=== PATIENT | male | born 1935 | race Caucasian/White ===

== ENCOUNTER 2019-10-25 13:31 | Outpatient (CLI) | payer MEDICARE, OTHER, SELFPAY ==
[2019-10-25 14:05] LABS: INR 1.37 (0.8-1.2)
== END 2019-10-25 13:32 | disposition home or self-care (01) ==
LOC: LAB 13:31
PROVIDERS: Family Provider Nurse Practitioner; PCP Nurse Practitioner; Visit Provider Thoracic Surgery (Cardiothoracic Vascular Surgery)
DX: I48.91 Unspecified atrial fibrillation (principal); I48.92 Unspecified atrial flutter
CPT/HCPCS: 85610

== ENCOUNTER → 2020-06-08 08:38 | Outpatient (BNVA) | payer MEDICARE, OTHER, SELFPAY | PROVIDERS: Family Provider Nurse Practitioner; PCP Nurse Practitioner; Referring Provider Dermatology; Visit Provider Dermatology | DX: B35.2 Tinea manuum (principal); L30.0 Nummular dermatitis; L85.3 Xerosis cutis | CPT/HCPCS: 87220 ==

== ENCOUNTER 2021-01-10 15:17 | Outpatient (CLI) | payer MEDICARE, OTHER, SELFPAY ==
--- NOTE | 2021-01-10 15:42 | XR_ITS ---
NOTE: Report was unsigned for reason: Ordering provider was edited. Original Signature date and time was: 01/10/2021 1552 WS: [id number] Exam: XR chest 2V* [id number] Date/Time of Exam: 01/10/2021 3:44 PM Reason For Exam: RESPIRATORY ILLNESS Comparison 07/13/2019. The lungs are hyperinflated and clear. Soft tissue nodules superimposes the lower lung zones and probably represent nipple shadows. Normal heart size. Signs of previous median sternotomy and cardiac valve replacement. No pleural effusions. The mediastinum is not widened. Regional bony elements are intact. [facility] X[facility]XR chest 2V* [id number] IMPRESSION: 1. Pulmonary hyperinflation which may indicate COPD. No acute cardiopulmonary f inding.
== END 2021-01-10 15:18 | disposition home or self-care (01) ==
PROVIDERS: Visit Provider Clinical Nurse Specialist Adult Health
DX: J98.9 Respiratory disorder, unspecified (principal)
CPT/HCPCS: 71046

== ENCOUNTER 2021-10-17 14:37 | Emergency (ER) | payer MEDICARE, OTHER, SELFPAY ==
[2021-10-17 15:14] VITALS: BP 180/82; PULSE 76; RESP 18; TEMP 36.7; O2SAT 97; BMI 28.7
[2021-10-17 15:42] VITALS: BP 167/72; PULSE 77; RESP 16; O2SAT 97
--- NOTE | 2021-10-17 15:52 | ED_ITS ---
HPI - General Adult General: Chief complaint: General Medical Stated complaint: Continuous bleeding Time Seen by Provider: 10/17/21 15:43 Source: patient and family () Mode of arrival: ambulatory Limitations: no limitations History of Present Illness: Patient with persistent bleeding from AV fistula left upper arm after dialysis today. Patient states he started bleeding and after he left dialysis and went back in and had a clamp placed around 1:30 PM today. Patient's had a clamp to the left upper arm since then. No active bleeding now. Patient reports that his INR was low approximately 10 days ago. His Coumadin was increased and his last INR was elevated around 3.8 approximately 6 days ago. Patient has artificial aortic valve. Patient also started Augmentin antibiotic Friday for infected tooth. Patient is supposed to have his teeth removed in the next couple weeks. Patient denies any other problems. Associated symptoms: Deny chest pain, confusion, cough, dyspnea, fevers/chills, malaise, nausea or rash Review of Systems Const: Denies: malaise Eyes: Denies: change in vision ENMT: Denies: throat pain Card: Denies: chest pain Resp: Denies: dyspnea GI: Denies: nausea : Denies: flank pain Musc: Denies: neck pain or back pain Skin/Breast: Denies: rash or pruritus Neuro: Denies: confusion Psych: Denies: anxiety Chucky/Lymph: Reports: easy bleeding [facility] ED PFSH: Medical History (Updated 10/17/21 @ 17:00 by Jason Raymundo MD) Adult onset hypothyroidism Benign hypertension CHF (congestive heart failure) COPD (chronic obstructive pulmonary disease) with emphysema Dialysis patient 2016 Hyperkalemia Surgical History History of cataract surgery 2013 History of colonoscopy 2016 History of heart valve replacement Aortic in [employer] 10/19/19 History of hernia repair History of right knee surgery 2010 Hx of left knee surgery 2010 Status post double vessel coronary artery bypass 2017 Family History Father Heart attack Mother Respiratory failure Social History Smoking and tobacco status: never smoked Second hand smoke exposure: No Smoking risk assessment/counseling performed?: No Alcohol intake: current Alcohol intake frequency: holidays/special occasions only Alcohol type: wine Desire information about alcohol rehabilitation?: No Counseling given: No Desire information about substance/drug rehabilitation?: No Counseling given: No Caregiver/support person: No Lives independently: Yes Household members: spouse Housing: House Marital status: Number of children: 2 service: No Current occupational status: retired History of recent travel: No Current gender identity: Male Physical Exam Const: COMMON NORMALS: no acute distress, patient oriented x3, no limitations and well nourished EXAM LIMITATIONS: altered mental status GENERAL APPEARANCE: cooperative HENMT: COMMON NORMALS: normocephalic and atraumatic HEAD & SCALP: normocephalic and atraumatic FACE & SINUS: normal facial exam Eye: COMMON NORMALS: EOMs intact bilaterally Neck/C-Spine: COMMON NORMALS: full ROM, no lymphadenopathy, supple and no meningeal signs GENERAL: Yes normal visual inspection Lymph: LYMPHATIC: no lymphadenopathy noted Chest: COMMONS NORMALS: normal inspection of the chest and normal palpation of entire chest wall CHEST: No Ecchymosis present and No rash Resp: COMMON NORMALS: normal respiratory effort, No retractions and clear to auscultation bilaterally EFFORT & INSPECTION: No respiratory distress A USCULTATION: clear to auscultation bilaterally Cardio: COMMON NORMALS: regular rate, regular rhythm and Peripheral pulses 2+ throughout JUGULAR VENOUS DISTENTION: no JVD RATE: regular rate RHYTHM: regular rhythm PERIPHERAL PULSES: Peripheral pulses 2+ throughout GI: COMMON NORMALS: Normal to inspection, nondistended, normoactive bowel sounds present and non-tender Extremity: COMMON NORMALS: full ROM and capillary refill normal OTHER: Patient has a dialysis clamp to left upper extremity. Neuro: COMMON NORMALS: patient oriented x3, CN's II-XII intact bilaterally, no focal motor deficits and no sensory deficits noted MENINGEAL SIGNS: Yes no meningeal signs Psych: COMMON NORMALS: mental status grossly normal and Normal thought process present THOUGHT PROCESS: Normal thought process present Skin: COMMON NORMALS: no rashes or lesions noted and no wounds GENERAL SKIN EXAM: no rashes or lesions noted Course Vital Signs: Vital signs: Vital Signs Temperature 98.1 F 10/17/21 15:14 Pulse Rate 77 10/17/21 15:42 Respiratory Rate 16 10/17/21 15:42 Blood Pressure 167/72 10/17/21 15:42 Pulse Oximetry 97 10/17/21 15:42 MDM - General Adult Medical Decision Making Elevated pro time due to Coumadin use and possibly additional antibiotic use. Lab Data : 10/17/21 15:38 Laboratory Results WBC 7.1 10^3/uL (4.0-10.0) 10/17/21 15:38 RBC 3.45 10^6/uL (4.1-5.3) L 10/17/21 15:38 Hgb 11.1 g/dL (11.7-16.6) L 10/17/21 15:38 Hct 35.1 % (42.0-52.0) L 10/17/21 15:38 MCV 101.7 fl (80-94) H 10/17/21 15:38 MCH 32.2 pg (28.0-34.0) 10/17/21 15:38 MCHC 31.6 g/dL (30.0-36.0) 10/17/21 15:38 RDW 14.8 % (12.1-15.1) 10/17/21 15:38 Plt Count 339 10^3/cmm (130-400) 10/17/21 15:38 MPV 9.4 fL (7.4-10.4) 10/17/21 15:38 Neut % (Auto) 62.4 % 10/17/21 15:38 Lymph % (Auto) 15.9 % 10/17/21 15:38 [place] % (Auto) 13.9 % 10/17/21 15:38 Eos % (Auto) 6.2 % 10/17/21 15:38 Baso % (Auto) 0.9 % 10/17/21 15:38 Neut # (Auto) 4.40 10^3/uL (1.8-7.7) 10/17/21 15:38 Lymph # (Auto) 1.1 10^3/uL (0.8-4.8) 10/17/21 15:38 [place] # (Auto) 1.0 10^3/uL (0.2-0.9) H 10/17/21 15:38 Eos # (Auto) 0.4 10^3/uL (0.0-0.8) 10/17/21 15:38 Baso # (Auto) 0.1 10^3/uL (0.0-0.1) 10/17/21 15:38 Nucleated RBC % (auto) 0 % 10/17/21 15:38 Nucleated RBCs # 0.0 /100WBC 10/17/21 15:38 PT 39.40 SECONDS (12.1-14.9) H 10/17/21 15:38 INR 3.98 (0.8-1.2) H 10/17/21 15:38 Other Data INR 3.98. INR should be around 2.5-3. I do not believe it is high enough to start vitamin K or anticoagulation reversal. Clamp was removed and wound was observed for a few minutes. No active bleeding. Will have patient hold Coumadin tonight and tomorrow and follow-up with dialysis on Friday. Will change Augmentin to plain amoxicillin 500 mg daily. Patient reportedly was taken 500 mg of Augmentin daily. He has not had his dose today. He is scheduled to have amoxicillin for another 6 days. Discharge Plan Discharge Patient Disposition: Home Clinical Impression: Dialysis patient Hemorrhage of arteriovenous fistula Qualifiers: Encounter type: initial encounter Qualified Code(s): T82.838A - Hemorrhage due to vascular prosthetic devices, implants and grafts, initial encounter Condition: Stable Prescriptions: New amoxicillin 500 mg capsule 500 mg PO DAILY 6 Days Qty: 6 0RF Rx Instructions: start on 10/18/21 No Action aspirin [Aspir-Low] 81 mg tablet,delayed release (DR/EC) 81 mg PO ONCE 0RF Auryxia 210 mg iron tablet 420 mg PO TID 0RF clonidine HCl 0.1 mg tablet 0.05 mg PO .prn 0RF metoprolol tartrate 25 mg tablet 25 mg PO ONCE 0RF Rx Instructions: 1/2 tab pantoprazole 40 mg tablet,delayed release (DR/EC) 40 mg PO ONCE 0RF Auryxia 210 mg iron tablet 210 mg PO TID 0RF triamcinolone acetonide 0.1 % cream 1 applic TOPICAL BID 0RF diphenhydramine HCl 1 % cream TOPICAL 0RF clotrimazole 1 % cream 1 applic TOPICAL BID 0RF albuterol sulfate 2.5 mg /3 mL (0.083 %) solution for nebulization 2.5 mg INHALATION Q6H 0RF diphenhydramine HCl [Benadryl Allergy] 25 mg tablet 25 mg PO DAILY 0RF omega-3 fatty acids 1,000 mg capsule 1,000 mg PO DAILY 0RF ondansetron HCl 4 mg tablet 4 mg PO Q4H 0RF Adult 50 Plus Probiotic 4 billion cell capsule 4,000 mmu cells PO DAILY 0RF Rx Instructions: administer with a meal ketoconazole 2 % cream 1 applic TOPICAL BID Qty: 60 1RF Rx Instructions: Apply twice daily to hands for 1 more month. triamcinolone acetonide 0.1 % cream 1 applic TOPICAL BID Qty: 80 1RF Rx Instructions: Apply BID to affected areas on legs no more then 2 weeks per month. warfarin 3 mg tablet 3 mg PO DAILY 0RF Rx Instructions: Twice a week 1 1/2 thyroid (pork) [GOLF [employer]SE PATROLLER Thyroid] 60 mg tablet 60 mg PO DAILY Qty: 30 1RF atorvastatin [Lipitor] 40 mg tablet 40 mg PO DAILY Qty: 30 5RF Discharge Orders: Discharge ED (Routine); Ordered 10/17/21 Ordered By: Jason Raymundo Discharge Diet: Usual diet Discharge Activity: Limit activity as instructed Patient Instructions: Warfarin (By mouth) Activity Restrictions/Additional Instructions: Do not take Coumadin tonight or tomorrow night. Start amoxicillin antibiotic tomorrow evening. Discontinue Augmentin antibiotic that you are on now. Leave left arm dressed until your dialysis on Friday. Return if any problems. Avoid lifting or straining with left arm for 2 days. You will need to have your Coumadin medication adjusted. Contact your primary care doctor for adjustment. Your INR was 3.98 today. Coding Level of Care Code ED Land Survey Technician for Stacey Fwd Exam Comprehensive
[2021-10-17 16:04] LABS: Basophils # 0.1 10^3/uL (0.0-0.1); Basophils % 0.9 %; Eosinophils # 0.4 10^3/uL (0.0-0.8); Eosinophils % 6.2 %; Hematocrit 35.1 % (42.0-52.0); Hemoglobin 11.1 g/dL (11.7-16.6); Lymphocytes # 1.1 10^3/uL (0.8-4.8); Lymphocytes % 15.9 %; Mean Corpuscular HGB Conc 31.6 g/dL (30.0-36.0); Mean Corpuscular Hemoglobin 32.2 pg (28.0-34.0); Mean Corpuscular Volume 101.7 fl (80-94); Mean Platelet Volume 9.4 fL (7.4-10.4); Monocytes % 13.9 %; Neutrophils % 62.4 %; Nucleated Red Blood Cells % 0 %; Platelet Count 339 10^3/cmm (130-400); Red Blood Count 3.45 10^6/uL (4.1-5.3); Red Cell Distribution Width 14.8 % (12.1-15.1); White Blood Count 7.1 10^3/uL (4.0-10.0)
[2021-10-17 16:31] LABS: INR 3.98 (0.8-1.2)
[2021-10-17] MEDS: amoxicillin 500 mg Capsule PO (17:17)
== END 2021-10-17 17:23 | disposition home or self-care (01) ==
PROVIDERS: Emergency Provider Family Medicine
DX: T82.838A Hemorrhage due to vascular prosthetic devices, implants and grafts, initial encounter (principal); Z99.2 Dependence on renal dialysis; I11.0 Hypertensive heart disease with heart failure; I50.9 Heart failure, unspecified; J44.9 Chronic obstructive pulmonary disease, unspecified
CPT/HCPCS: 85025; 85610; 99283

== ENCOUNTER 2021-10-23 17:20 | Emergency (ER) | payer MEDICARE, OTHER, SELFPAY ==
[2021-10-23 17:24] VITALS: BP 138/77; RESP 20; TEMP 36.4; O2SAT 98; BMI 28.8
--- NOTE | 2021-10-23 17:49 | ED_ITS ---
HPI - General Adult General: Chief complaint: Dental/Oral Stated complaint: BLEEDING IN MOUTH 15 TEETH REMOVED Time Seen by Provider: 10/23/21 17:26 History of Present Illness: Patient is an 85-year-old male with history of aortic stenosis s/p TAVR at [place], on warfarin previously discontinued 5 days ago, CABG, ESRD on dialysis Friday, atrial fibrillation, hypertension, COPD who presents the emergency room with complaints of gumline bleeding after having his teeth removed around 10 AM this morning. Patient tells me and told that he had 15 teeth removed. Arrival, patient's throat reports significant bleeding of the gum lines has been spitting up blood. No other focal complaints at this time. Initially upon arrival, patient had blood pressure 80/40. Onset: 10am Duration:ongoing Location:home Severity:moderate/severe Associated symptoms: Deny chest pain, dyspnea, nausea, rash, palpitations or vomiting Review of Systems Const: Denies: fever(s) or chills Eyes: Denies: change in vision ENMT: Reports: mouth pain and other (+gumline bleeding, +spitting blood) Card: Denies: chest pain or palpitations Resp: Denies: dyspnea or non-productive cough GI: Denies: abdominal pain, nausea, vomiting or diarrhea : Denies: dysuria Musc: Denies: extremity pain Skin/Breast: Denies: rash or new lesions Neuro: Denies: weakness in extremities Psych: Reports: other (Normal mood) Chucky/Lymph: Denies: easy bruising PFSH ED PFSH: Medical History (Updated 10/23/21 @ 23:03 by Lolita Nolasco MD) Adult onset hypothyroidism Benign hypertension CHF (congestive heart failure) COPD (chronic obstructive pulmonary disease) with emphysema Dialysis patient 2016 Hyperkalemia Surgical History History of cataract surgery 2013 History of colonoscopy 2016 History of heart valve replacement Aortic in [place] 10/19/19 History of hernia repair History of right knee surgery 2010 Hx of left knee surgery 2010 Status post double vessel coronary artery bypass 2017 Family History Father Heart attack Mother Respiratory failure Social History Smoking and tobacco status: never smoked Second hand smoke exposure: No Smoking risk assessment/counseling performed?: No Alcohol intake: current Alcohol intake frequency: holidays/special occasions only Alcohol type: wine Desire information about alcohol rehabilitation?: No Counseling given: No Desire information about substance/drug rehabilitation?: No Counseling given: No Caregiver/support person: No Lives independently: Yes Household members: spouse Housing: House Marital status: Number of children: 2 service: No Current occupational status: retired History of recent travel: No Current gender identity: Male Physical Exam Const: COMMON NORMALS: alert HENMT: COMMON NORMALS: atraumatic HEAD & SCALP: atraumatic MOUTH: moist mucous membranes not abnormal OTHER: +bleeding along the lower and upper R sided gumline with dried clots, + No stridor, no posterior oropharyngeal bleeding, no drooling Eye: COMMON NORMALS: EOMs intact bilaterally and conjunctivae normal CONJUNCTIVA: Yes conjunctivae normal Neck/C-Spine: COMMON NORMALS: full ROM and supple Resp: COMMON NORMALS: normal respiratory effort and clear to auscultation bilaterally AUSCULTATION: clear to auscultation bilaterally Cardio: COMMON NORMALS: regular rate RATE: regular rate GI: COMMON NORMALS: Soft to palpation and non-tender PALPATION: Yes Soft to palpation Extremity: COMMON NORMALS: full ROM Neuro: SENSORIUM/ORIENTATION: Yes alert MOTOR EXAM: No Abnormal motor str ength present and Other motor observations present (no focal motor deficits) Psych: COMMON NORMALS: speech normal SPEECH: Yes normal speech MOOD & AFFECT: Yes euthymic mood Course Vital Signs: Vital signs: Vital Signs Temperature 97.8 F 10/23/21 22:24 Pulse Rate 83 10/23/21 22:24 Respiratory Rate 16 10/23/21 22:24 Blood Pressure 109/56 10/23/21 22:24 Pulse Oximetry 98 10/23/21 22:24 [facility] - General Adult Medical Decision Making Patient is an 85-year-old male previously on warfarin emergency room with complaint of, and bleeding. On arrival, patient is noted to have moderate bruising of the upper and lower gumline. Bleeding has significantly improved after amicar acid, local TXA with gauze, and lido/epi injections. Two sutures of 4-0 chromic guts were placed to attempt to stop the bleeding and a small gauze was applied to the R upper gumline. The gauze along the u is removed after the bleeding stopped. Initially patient had a hemoglobin of 9.3 that dropped to 7.3 after 3 hours observation. While observed in the emergency room around 9 PM, patient now is somnolent and sleeping. BP of 70/30 with repeat similar. Patient recevied 500c of IVF and 0.8mg of narcan. Glucose within normal limit. BUN of 60 similar to baseline compared to earlier today/prior labs. INR wnl. Patient was found to have a potassium of 5.8 on BMP with similar numbers on ABG. Patient received 2g calcium gluconate, 5 unit of regular insulin and 2 amps of D50. EKG did not show any signs of hyperkalemia but calcium gluconate was given empirically. For the acute drop in H&H, patient received 2 units of blood. Patient was currently on 8 mcg of norepi peripherally with improvement in BP to 110/80. Dr. Malik was consulted and performed bedside scope which not show any signs of active bleeding. However Dr. Malik recommended transfer since we do not have OMFS and patient has had 2 units of blood drop already. The fact that patient had nitric oxide used during the procedure and no local anesthetics, do not suspect that presentation of AMS and hypotension today is consistent with LAST syndrome. No signs of methemoglobinemia on Abg COOX. No acute pCO2 retention. XR clear. Case was discussed with Dr. Restrepo who agreed with the transfer to [facility] ICU for OMFS support in case of gumline rebleeding, AMS, hypotension, and hypkerlamia. I have offered to place central line however Dr. Restrepo recommended no central line at this time and close reevaluation with patient arrives to [facility] to determine whether patient needs pressors. Disposition: Transfer to outside hospital Lab Data : 10/23/21 20:52 10/23/21 20:52 Radiology Impressions Chest X-Ray 10/23/21 20:28 IMPRESSION: Negative chest. No acute pulmonary disease. Laboratory Results WBC 15.3 10^3/uL (4.0-10.0) H 10/23/21 20:52 RBC 2.23 10^6/uL (4.1-5.3) L 10/23/21 20:52 Hgb 7.3 g/dL (11.7-16.6) L 10/23/21 20:52 Hct 22.6 % (42.0-52.0) L 10/23/21 20:52 MCV 101.3 fl (80-94) H 10/23/21 20:52 MCH 32.7 pg (28.0-34.0) 10/23/21 20:52 MCHC 32.3 g/dL (30.0-36.0) 10/23/21 20:52 RDW 14.6 % (12.1-15.1) 10/23/21 20:52 Plt Count 342 10^3/cmm (130-400) 10/23/21 20:52 MPV 9.3 fL (7.4-10.4) 10/23/21 20:52 Neut % (Auto) 85.2 % 10/23/21 20:52 Lymph % (Auto) 5.9 % 10/23/21 20:52 [place] % (Auto) 7.7 % 10/23/21 20:52 Eos % (Auto) 0.2 % 10/23/21:52 Baso % (Auto) 0.5 % 10/23/21 20:52 Neut # (Auto) 13.01 10^3/uL (1.8-7.7) H 10/23/21 20:52 Lymph # (Auto) 0.9 10^3/uL (0.8-4.8) 10/23/21 20:52 [place] # (Auto) 1.2 10^3/uL (0.2-0.9) H 10/23/21 20:52 Eos # (Auto) 0.0 10^3/uL (0.0-0.8) 10/23/21 20:52 Baso # (Auto) 0.1 10^3/uL (0.0-0.1) 10/23/21 20:52 Nucleated RBC % (auto) 0 % 10/23/21: Nucleated RBCs # 0.0 /100WBC 10/23/21 20:52 PT 14.60 SECONDS (12.1-14.9) 10/23/21 20:52 INR 1.11 (0.8-1.2) 10/23/21 20:52 APTT 24.0 SECONDS (23.9-36.7) 10/23/21 20:52 D-Dimer 1.50 ug/mIFEU (0-0.59) H 10/23/21 17:49 Specimen Type Arterial 10/23/21 21:19 Sample Site Brachial, right 10/23/21 21:19 ABG pH 7.43 (7.35-7.45) 10/23/21 21:19 ABG pCO2 36.5 mmHg (35-45) 10/23/21 21:19 ABG pO2 64.6 mmHg (80.0-100.0) L 10/23/21 21:19 ABG HCO3 24.1 mmol/L (22-26) 10/23/21 21:19 ABG O2 Saturation 93.8 10/23/21 21:19 ABG Base Excess -0.2 mmol/L (-2.0-2.0) 10/23/21 21:19 Roc Test Pos 10/23/21 21:19 A-a O2 Gradient 5.2 mmHg (5-10) 10/23/21 21:19 Hematocrit 24.3 % (42-52) L 10/23/21 21:19 Hgb O2 Saturation 91.2 % (95-100) L 10/23/21 21:19 Carboxyhemoglobin 1.8 %THgb (0.4-20.1) 10/23/21 21:19 Methemoglobin 1.0 % (0.4-1.5) 10/23/21 21:19 Total Hemoglobin 7.9 g/dL (14-18) L 10/23/21 21:19 Sodium 135.0 mmol/L (131-143) 10/23/21 21:19 Potassium 5.8 mmol/L (3.5-5.0) H 10/23/21 21:19 Glucose 135.0 mg/dL (70-115) H 10/23/21 21:19 Ionized Calcium 1.0 mmol/L (1.1-1.4) L 10/23/21 21:19 O2 Delivery Device None 10/23/21 21:19 FiO2 21.0 % 10/23/21 21:19 Distribution Lead ID [id number] 10/23/21 21:19 Sodium 134 mmol/L (136-145) L 10/23/21 20:52 Potassium 5.8 mmol/L (3.5-5.1) H 10/23/21 20:52 Chloride 96 mmol/L (98-107) L 10/23/21 20:52 Carbon Dioxide 20 mmol/L (22-29) L 10/23/21 20:52 Anion Gap 23.8 (5-19) H 10/23/21 20:52 BUN 60 mg/dL (8-23) H 10/23/21 20:52 Creatinine 6.4 mg/dL (0.7-1.2) H* 10/23/21 20:52 GFR Calculation Not Reportable 10/23/21 20:52 Glucose 139 mg/dL (65-115) H 10/23/21 20:52 POC Glucose 136 mg/dL (70-110) H 10/23/21 20:41 Calculated Osmolality 297 mOsm/kg (285-295) H 10/23/21 20:52 Lactate 1.3 mmol/L (0.5-2.2) 10/23/21 20:52 Calcium 7.7 mg/dL (8.5-10.5) L 10/23/21 20:52 Total Bilirubin 0.4 mg/dL (0.15-1.2) 10/23/21 20:52 AST 22 U/L (0-40) 10/23/21 20:52 ALT 18 U/L (0-41) 10/23/21 20:52 Alkaline Phosphatase 82 IU/L (40-130) 10/23/21 20:52 Ammonia 19 umol/L (16-60) 10/23/21 20:52 Troponin T Baseline 109 ng/L (0-15) H* 10/23/21 20:52 Total Protein 5.3 g/dL (6.6-8.7) L 10/23/21 20:52 Albumin 3.6 g/dL (3.5-5.2) 10/23/21 20:52 Globulin 1.7 g/dL (1.3-4.6) 10/23/21 20:52 Lipase 31 U/L (13-60) 10/23/21 20:52 Blood Type O Positive 10/23/21 18:45 Rho(D) Type Positive 10/23/21 18:45 Antibody Screen Negative 10/23/21 18:45 Crossmatch See Detail 10/23/21 18:45 Imaging Data Other Imaging: Radiologist's impression: [facility] [address] [address] XRay Report Signed Patient: Too Ren Unit #: [id number] : [id number] Age/Sex: 85 / M ADM Date: 10/23/21 Loc: ER Room/Bed: Attending Dr: Ordering Provider/Ordering MD: Lolita Nolasco MD Date of Service: 10/23/21 Procedure(s): XR chest 1V portable [id number] Accession Number(s): [id number] Report Number: [id number] PROCEDURE INFORMATION: Exam: XR Chest Exam date and time: 10/23/2021 8:28 PM Age: 85 years old Clinical indication: Chest pressure; Prior surgery; Surgery type: Cabg; Patient HX: C/O chest pain TECHNIQUE: Imaging protocol: XR of the chest. Views: 1 view. COMPARISON: CR XR chest 2V* [id number] 01/10/2021 3:48 PM FINDINGS: Lungs: Unremarkable. No consolidation.? Small left upper lobe granuloma. Pleural spaces: Unremarkable. No pleural effusion. No pneumothorax. Heart/Mediastinum: Prior CABG. Borderline enlargement of cardiac silhouette. Bones/joints: Unremarkable. XR/XR chest 1V portable [id number] IMPRESSION: Negative chest. No acute pulmonary disease. ? Dictated By: Thang Diallo Signed By: Thang Diallo Signed Date/Time: 10/23/212236 DD/ 27 Critical Care Time Critical Care Time: Critical Care Time: Yes Total Critical Care Time: 41 Attestation: The high probability of a clinically significant, sudden or life threatening deterioration of the patient's Cardiovascular and neurological system(s) required my full and direct attention, intervention and personal management. The critical care time is as shown. This time is in addition to time spent performing any reported procedures but includes the following: [x] Data and vital sign review and interpretation [x] Patient assessment, examination and intervention [x] Documentation [x] Medication orders and management Discharge Plan Discharge Patient Disposition: Transfer to ED Clinical Impression: Bleeding gums, Altered mental status, Acute hyperkalemia, Hyperkalemia, Hy potension Condition: Stable Prescriptions: No Action aspirin [Aspir-Low] 81 mg tablet,delayed release (DR/EC) 81 mg PO ONCE 0RF Auryxia 210 mg iron tablet 420 mg PO TID 0RF clonidine HCl 0.1 mg tablet 0.05 mg PO .prn 0RF metoprolol tartrate 25 mg tablet 25 mg PO ONCE 0RF Rx Instructions: 1/2 tab pantoprazole 40 mg tablet,delayed release (DR/EC) 40 mg PO ONCE 0RF Auryxia 210 mg iron tablet 210 mg PO TID 0RF triamcinolone acetonide 0.1 % cream 1 applic TOPICAL BID 0RF diphenhydramine HCl 1 % cream TOPICAL 0RF clotrimazole 1 % cream 1 applic TOPICAL BID 0RF albuterol sulfate 2.5 mg /3 mL (0.083 %) solution for nebulization 2.5 mg INHALATION Q6H 0RF diphenhydramine HCl [Benadryl Allergy] 25 mg tablet 25 mg PO DAILY 0RF omega-3 fatty acids 1,000 mg capsule 1,000 mg PO DAILY 0RF ondansetron HCl 4 mg tablet 4 mg PO Q4H 0RF Adult 50 Plus Probiotic 4 billion cell capsule 4,000 mmu cells PO DAILY 0RF Rx Instructions: administer with a meal ketoconazole 2 % cream 1 applic TOPICAL BID Qty: 60 1RF Rx Instructions: Apply twice daily to hands for 1 more month. triamcinolone acetonide 0.1 % cream 1 applic TOPICAL BID Qty: 80 1RF Rx Instructions: Apply BID to affected areas on legs no more then 2 weeks per month. warfarin 3 mg tablet 3 mg PO DAILY 0RF Rx Instructions: Twice a week 1 1/2 thyroid (pork) [INSPECTOR OUTSIDE PRODUCTION Thyroid] 60 mg tablet 60 mg PO DAILY Qty: 30 1RF atorvastatin [Lipitor] 40 mg tablet 40 mg PO DAILY Qty: 30 5RF Coding Level of Care Code ED Information Systems Security Manager for Susieg Fwd Exam Comprehensive
[2021-10-23 17:55] LABS: Basophils # 0.1 10^3/uL (0.0-0.1); Basophils % 0.6 %; Eosinophils # 0.2 10^3/uL (0.0-0.8); Eosinophils % 1.1 %; Hematocrit 29.4 % (42.0-52.0); Hemoglobin 9.3 g/dL (11.7-16.6); Lymphocytes # 1.1 10^3/uL (0.8-4.8); Lymphocytes % 6.6 %; Mean Corpuscular HGB Conc 31.6 g/dL (30.0-36.0); Mean Corpuscular Hemoglobin 32.6 pg (28.0-34.0); Mean Corpuscular Volume 103.2 fl (80-94); Mean Platelet Volume 9.9 fL (7.4-10.4); Monocytes # 1.1 10^3/uL (0.2-0.9); Monocytes % 6.9 %; Neutrophils # 13.49 10^3/uL (1.8-7.7); Neutrophils % 84.3 %; Nucleated Red Blood Cells % 0 %; Platelet Count 378 10^3/cmm (130-400); Red Blood Count 2.85 10^6/uL (4.1-5.3); Red Cell Distribution Width 14.6 % (12.1-15.1)
[2021-10-23 18:25] LABS: INR 1.08 (0.8-1.2)
[2021-10-23 18:26] LABS: Partial Thromboplastin Time 28.8 SECONDS (23.9-36.7)
[2021-10-23 18:37] LABS: Blood Urea Nitrogen 60 mg/dL (8-23); Calcium 8.7 mg/dL (8.5-10.5); Carbon Dioxide 26 mmol/L (22-29); Chloride 94 mmol/L (98-107); Glucose 115 mg/dL (65-115); Osmolality Calculated 302 mOsm/kg (285-295); Sodium 137 mmol/L (136-145)
[2021-10-23] MEDS: lidocaine 2% viscous 1.667 ML, diphenhydrAMINE oral liq 4.165 MG, aluminum-mag hydrox-s... MUCOUS MEM (18:46)
--- NOTE | 2021-10-23 19:30 | PC.NURSE ---
Dr. Nolasco notifed of hypotension of 70/64. Verbal order to give 250mL of NS.
--- NOTE | 2021-10-23 20:00 | PC.NURSE ---
Pt BP dropped again to 80/54. Dr. Nolasco notified. No new orders received.
[2021-10-23 20:22] VITALS: BP 77/42; PULSE 72; RESP 20; O2SAT 96
--- NOTE | 2021-10-23 20:23 | PC.NURSE ---
Another 250mL NS bolus started per verbal order from Dr. Nolasco
--- NOTE | 2021-10-23 20:28 | ECG_ITS ---
[facility] Test Date: 2021-10-23 Pat Name: Too Ren Department: Room: Gender: Male Supplier Manager: : [id number] Requested By: Lolita Nolasco Order Number: [id number] Reema MD: Orlando Martinez M.D. Measurements Intervals [place] Rate: 71 P: 21 KS: 214 QRS: -2 QRSD: 114 T: 21 QT: 440 QTc: 480 Interpretive Statements SINUS RHYTHM WITH FIRST DEGREE AV BLOCK INFERIOR MYOCARDIAL INFARCTION , PROBABLY OLD [40+ ms Q WAVE AND/OR ST/T ABNORMALITY IN II/aVF] Compared to ECG 07/11/2019 21:03:13 First degree AV block now present Atrial fibrillation no longer present T-wave abnormality no longer present Possible ischemia no longer present Myocardial infarct finding still present Electronically Signed On 10-23-2021 21:35:24 DELIVERY ROOM CLERK by Orlando Martinez M.D. [id number]
--- NOTE | 2021-10-23 20:28 | XRR_ITS ---
PROCEDURE INFORMATION: Exam: XR Chest Exam date and time: 10/23/2021 8:28 PM Age: 85 years old Clinical indication: Chest pressure; Prior surgery; Surgery type: Cabg; Patient HX: C/O chest pain TECHNIQUE: Imaging protocol: XR of the chest. Views: 1 view. COMPARISON: CR XR chest 2V* [id number] 01/10/2021 3:48 PM FINDINGS: Lungs: Unremarkable. No consolidation. Small left upper lobe granuloma. Pleural spaces: Unremarkable. No pleural effusion. No pneumothorax. Heart/Mediastinum: Prior CABG. Borderline enlargement of cardiac silhouette. Bones/joints: Unremarkable. XR/XR chest 1V portable [id number] IMPRESSION: Negative chest. No acute pulmonary disease.
--- NOTE | 2021-10-23 20:43 | PC.NURSE ---
Pt continues to be hypotensive despite fluids. Dr. Nolasco at bedside. Verbal order to get new labs for complete workup. Pt is very tired, having trouble staying awake. Will open eyes to name but falls right back asleep.
[2021-10-23 20:45] LABS: Glucose Point of Care 136 mg/dL (70-110)
--- NOTE | 2021-10-23 20:57 | PC.NURSE ---
LAb and Dr. Nolasco at bedside. Dr. Nolasco using the ultrasound to find a vein for a venapuncture. Pt continues to sleep, does not wake with painful stimuli. Pt will wake to name but falls back asleep or mumbles when questions are being asked. at bedside.
[2021-10-23 21:01] LABS: Basophils # 0.1 10^3/uL (0.0-0.1); Basophils % 0.5 %; Eosinophils % 0.2 %; Hematocrit 22.6 % (42.0-52.0); Hemoglobin 7.3 g/dL (11.7-16.6); Lymphocytes # 0.9 10^3/uL (0.8-4.8); Lymphocytes % 5.9 %; Mean Corpuscular HGB Conc 32.3 g/dL (30.0-36.0); Mean Corpuscular Hemoglobin 32.7 pg (28.0-34.0); Mean Corpuscular Volume 101.3 fl (80-94); Mean Platelet Volume 9.3 fL (7.4-10.4); Monocytes # 1.2 10^3/uL (0.2-0.9); Monocytes % 7.7 %; Neutrophils # 13.01 10^3/uL (1.8-7.7); Neutrophils % 85.2 %; Nucleated Red Blood Cells % 0 %; Platelet Count 342 10^3/cmm (130-400); Red Blood Count 2.23 10^6/uL (4.1-5.3); Red Cell Distribution Width 14.6 % (12.1-15.1); White Blood Count 15.3 10^3/uL (4.0-10.0)
--- NOTE | 2021-10-23 21:03 | PC.NURSE ---
Pt BP now reading 123/50 after norepinephrine has been started. Pt now answering questions when asked. Dr. Nolasco at bedside performing a fast exam.
[2021-10-23 21:15] LABS: INR 1.11 (0.8-1.2)
[2021-10-23 21:24] LABS: Ammonia 19 umol/L (16-60); Lactate (Lactic Acid level) 1.3 mmol/L (0.5-2.2)
[2021-10-23 21:25] LABS: Alanine Aminotransferase 18 U/L (0-41); Albumin Level 3.6 g/dL (3.5-5.2); Alkaline Phosphatase 82 IU/L (40-130); Anion Gap 23.8 (5-19); Aspartate Amino Transferase 22 U/L (0-40); Blood Urea Nitrogen 60 mg/dL (8-23); Calcium 7.7 mg/dL (8.5-10.5); Carbon Dioxide 20 mmol/L (22-29); Chloride 96 mmol/L (98-107); Globulin 1.7 g/dL (1.3-4.6); Glucose 139 mg/dL (65-115); Lipase 31 U/L (13-60); Osmolality Calculated 297 mOsm/kg (285-295); Potassium 5.8 mmol/L (3.5-5.1); Sodium 134 mmol/L (136-145); Total Bilirubin 0.4 mg/dL (0.15-1.2); Total Protein 5.3 g/dL (6.6-8.7)
[2021-10-23 21:26] LABS: Troponin(5th) Baseline 109 ng/L (0-15)
[2021-10-23 21:30] LABS: ABG PCO2 36.5 mmHg (35-45); ABG PH Result 7.43 (7.35-7.45); Alveolar-Arterial Oxygen Gradi 5.2 mmHg (5-10); Arterial Blood Gas Hematocrit 24.3 % (42-52); Base Excess ABG -0.2 mmol/L (-2.0-2.0); Blood Gas Allen Test Pos; Blood Gas Sample Site Brachial, right; Blood Gas Sample Type Arterial; Carboxyhemoglobin 1.8 %THgb (0.4-20.1); HCO3 ABG 24.1 mmol/L (22-26); HGB O2 Sat 91.2 % (95-100); Oxygen Saturation ABG 93.8; PO2 ABG 64.6 mmHg (80.0-100.0); Potassium Level - ABG 5.8 mmol/L (3.5-5.0); Total Hemoglobin 7.9 g/dL (14-18)
[2021-10-23 21:53] VITALS: BP 110/63; PULSE 82; RESP 16; TEMP 36.6; O2SAT 99
[2021-10-23] MEDS: naloxone 0.4 mg/ml SDV IVP ×2 (22:00→22:05)
--- NOTE | 2021-10-23 22:00 | P.CONIM_ITS ---
Providers/Reason For Consult Consulting Physician/Specialty*: Dr. Nii Malik MD Otolaryngology, Head & Neck Surgery Reason for Consult*: Oral bleeding Requesting Physician: ER History of Present Illness History of Present Illness Too Ren is a 85 year old male who was well until 10am this morning when he underwent a full mouth dental extraction. The patient has bleed orally since the procedure and presented to the [facility] for evaluation and treatment. The patient is on dialysis and takes Coumadin which he discontinued 7 days ago. The patient reports that he is now doing well, and has no other c/o. He denies any recent h/o epistaxis or hemoptysis, and is o/w without c/o. Review of Systems General: Reports: 10 or more systems reviewed and unremarkable except in HPI and below Medications/Allergies Home Medications Medication Instructions Recorded Confirmed Last Taken Type albuterol sulfate 2.5 mg INHALATION Q6H 08/31/19 06/08/20 Unknown History aspirin 81 mg tablet,delayed 81 mg PO ONCE 08/31/19 06/08/20 Unknown History release (Aspir-Low) clonidine HCl 0.1 mg tablet 0.05 mg PO .prn tab 08/31/19 06/08/20 Unknown History clotrimazole 1 % topical cream 1 applic TOPICAL BID 08/31/19 06/08/20 Unknown History diphenhydramine HCl 1 % topical % TOPICAL 08/31/19 06/08/20 Unknown History cream ferric citrate 210 mg iron tablet 210 mg PO TID 08/31/19 06/08/20 Unknown History (Auryxia) ferric citrate 210 mg iron tablet 420 mg PO TID 08/31/19 06/08/20 Unknown History (Auryxia) metoprolol tartrate 25 mg tablet 25 mg PO ONCE tab 08/31/19 06/08/20 Unknown History pantoprazole 40 mg tablet,delayed 40 mg PO ONCE 08/31/19 06/08/20 Unknown History release triamcinolone acetonide 0.1 % 1 applic TOPICAL BID 08/31/19 06/08/20 Unknown History topical cream diphenhydramine HCl 25 mg tablet 25 mg PO DAILY tab 11/02/19 06/08/20 Unknown History (Benadryl Allergy) omega-3 fatty acids 1,000 mg 1,000 mg PO DAILY 11/02/19 06/08/20 Unknown History capsule ondansetron HCl 4 mg tablet 4 mg PO Q4H tab 11/02/19 06/08/20 Unknown History thyroid (pork) 60 mg tablet (HIDE MEASURING MACHINE OPERATOR 60 mg PO DAILY #30 tab 11/02/19 06/08/20 Unknown Rx Thyroid) warfarin 3 mg tablet 3 mg PO DAILY 11/02/19 06/08/20 Unknown History atorvastatin 40 mg tablet (Lipitor) 40 mg PO DAILY #30 tab 11/17/19 06/08/20 Unknown Rx ketoconazole 2 % topical cream 1 applic TOPICAL BID #60 gm 06/08/20 06/08/20 Unknown Rx lactobacillus combination no.9 4 4,000 mmu cells PO DAILY 06/08/20 06/08/20 Unknown History billion cell capsule (Adult 50 Plus Probiotic) triamcinolone acetonide 0.1 % 1 applic TOPICAL BID #80 gm 06/08/20 06/08/20 Unknown Rx topical cream Allergies Allergy/AdvReac Type Severity Reaction Status Date / Time clarithromycin [From Biaxin] Allergy Unknown Unknown Verified 10/23/21 17:23 Current Medications Generic Name Dose Route Start Last Admin Trade Name Freq PRN Reason Stop Dose Admin Lidocaine HCl 1.667 ml/ 0 ml 10/23/21 18:30 10/23/21 18:46 Diphenhydramine HCl 4.165 mg/ MUCOUS MEM 6 ml Al Hydrox/Mg Hydrox/ Q4H PRN Administration Simethicone 1.667 ml MOUTH PAIN Tranexamic Acid 1,000 mg/ 110 mls @ 330 mls/hr 10/23/21 17:36 10/23/21 20:15 Sodium Chloride IV 0 mls/hr Q30M PRN Infusion BLEEDING Norepinephrine Bitartrate 4 mg 254 mls @ 0 mls/hr 10/23/21 20:45 10/23/21 21:10 / Dextrose IV 8 mcg/min .Q0M EMIL 30.48 mls/hr Titration Protocol Per Protocol PFSH Acute PFSH: Medical History Adult onset hypothyroidism Benign hypertension CHF (congestive heart failure) COPD (chronic obstructive pulmonary disease) with emphysema Dialysis patient 2016 Hyperkalemia Surgical History History of cataract surgery 2013 History of colonoscopy 2016 History of heart valve replacement Aortic in [place] 10/19/19 History of hernia repair History of right knee surgery 2010 Hx of left knee surgery 2010 Status post double vessel coronary artery bypass 2017 Family History Father Heart attack Mother Respiratory failure Social History Smoking and tobacco status: never smoked Second hand smoke exposure: No Smoking risk assessment/counseling performed?: No Alcohol intake: current Alcohol intake frequency: holidays/special occasions only Alcohol type: wine Desire information about alcohol rehabilitation?: No Counseling given: No Desire information about substance/drug rehabilitation?: No Counseling given: No Caregiver/support person: No Lives independently: Yes Household members: spouse Housing: House Marital status: Number of children: 2 service: No Current occupational status: retired History of recent travel: No Current gender identity: Male Vitals/I&O/Wt Last Vital Signs Temp 97.9 F 10/23/21 21:53 Pulse 82 10/23/21 21:53 Resp 16 10/23/21 21:53 BP 110/63 10/23/21 21:53 Pulse Ox 99 10/23/21 21:53 10/23/21 10/23/21 10/23/21 06:59 14:59 22:59 Intake Total 335.834 / 335.834 Balance 335.834 / 335.834 Weight last 48 hrs Weight 73.936 kg Physical Exam Const: COMMON NORMALS: no acute distress and patient oriented x3 GENERAL APPEARANCE: cooperative HENMT: COMMON NORMALS: normocephalic and external ears normal HEAD & SCALP: normocephalic FACE & SINUS: normal facial exam EXTERNAL EAR: Yes external ears normal MOUTH: tongue normal and other (Surgical changes present; dried blood in wounds with, no active bleeding) Eye: COMMON NORMALS: Equal, round and reactive pupils present and conjunctivae normal CONJUNCTIVA: Yes conjunctivae normal SCLERA: sclerae normal PUPIL: Yes Equal, round and reactive pupils present Neck/C-Spine: COMMON NORMALS: full ROM, no lymphadenopathy and supple Neuro: COMMON NORMALS: patient oriented x3 Data : 10/23/21 20:52 10/23/21 20:52 Micro: Microbiology 03/08/22 20:52 Blood Culture - Preliminary Blood SPECIMEN COLLECTED A&P Assessment and plan (1) Bleeding gums: 1) I recommend that the patient receive oral surgery care. The patient is not now bleeding, but would be best served as an inpatient where oral surgery is available. Thank you for the opportunity to participate in Mr. Ren's care. Status: Acute Consult Attestations Medical Necessity Statement: I was consulted to assist in management of Mr. Ren's oral bleeding. Procedures Procedure Narrative Flexible Fiberoptic Nasopharyngolaryngoscopy: the patient's nose was sprayed with an Afrin/Lidocaine mix; the scope was passed into the nose and the nose, nasopharynx, oralpharynx, hypopharynx, and larynx were inspected - there was a scant amount of fresh blood in the right middle meatus, but there was no active bleeding; there was dried blood on the base of tongue, but there was no active bleeding; the exam was o/w normal bilaterally. Coding Level of Care Code Acute Supervisor Dimension Warehouse for Stacey Wang Diagnoses Bleeding gums K06.8
[2021-10-23 22:01] VITALS: BP 91/48; PULSE 89; RESP 14; O2SAT 97
[2021-10-23 22:09] VITALS: BP 114/53; PULSE 85; RESP 16; TEMP 36.6; O2SAT 96
[2021-10-23 22:24] VITALS: BP 109/56; PULSE 83; RESP 16; TEMP 36.6; O2SAT 98
--- NOTE | 2021-10-23 23:22 | PC.NURSE ---
Report called to Lorie Cruz RN- pending EMS transport. Report given to STEVEN Sharp to continue care until EMS arrives.
[2021-10-23] MEDS: insulin regular-human 100 units/1 mL 5 UNIT IVP (23:41)
[2021-10-23] MEDS: calcium gluconate 0.9% NaCL 1 GM/50 ML PREMIX IV (23:41)
[2021-10-23] MEDS: dextrose 10% 250 ML 30 ML IV (23:47)
== END 2021-10-24 ==
PROVIDERS: Emergency Provider Emergency Medicine
DX: K06.8 Other specified disorders of gingiva and edentulous alveolar ridge (principal); R41.82 Altered mental status, unspecified; E87.5 Hyperkalemia; I95.9 Hypotension, unspecified; Z79.01 Long term (current) use of anticoagulants; Z79.82 Long term (current) use of aspirin; J44.9 Chronic obstructive pulmonary disease, unspecified; Z98.818 Other dental procedure status; Z95.1 Presence of aortocoronary bypass graft; I13.2 Hypertensive heart and chronic kidney disease with heart failure and with stage 5 chronic kidney disease, or end stage renal disease; N18.6 End stage renal disease; I50.9 Heart failure, unspecified; Z99.2 Dependence on renal dialysis
CPT/HCPCS: 12345; 36415; 36416; 36430; 36600; 41899; 71045; 80048; 80051; 80053; 82140; 82330; 82805; 82962; 83605; 83690; 84484; 85025; 85378; 85610; 85730; 86850; 86900; 86920; 87040; 93005; 96365; 96366; 96367; 96375; 99291; 99292; J0610; J1815; J2310; J2597; J3490; J7050; J7799; P9016

== ENCOUNTER 2022-07-17 14:01 | Outpatient (CLI) | payer MEDICARE, OTHER, SELFPAY ==
--- NOTE | 2022-07-17 14:20 | XRR_ITS ---
PROCEDURE INFORMATION: Exam: XR Chest Exam date and time: 07/17/2022 2:27 PM Age: 86 years old Clinical indication: Cough; Prior surgery; Surgery type: Bypass, valve; Additional info: Cough, possible post viral TECHNIQUE: Imaging protocol: Radiologic exam of the chest. Views: 2 views. COMPARISON: CR (CHEST, ) 10/23/2021 10:12 PM FINDINGS: Lungs: Unremarkable. No consolidation. Pleural spaces: Unremarkable. No pleural effusion. No pneumothorax. Heart/Mediastinum: There has been aortic valve replacement. Bones/joints: There has been sternotomy. XR/XR chest 2V* [id number] IMPRESSION: There are no acute concerning abnormalities.
== END 2022-07-17 14:02 | disposition home or self-care (01) ==
LOC: RAD 14:04
PROVIDERS: PCP Clinical Nurse Specialist Adult Health; Visit Provider Clinical Nurse Specialist Adult Health
DX: R05.9 Cough, unspecified (principal)
CPT/HCPCS: 71046

== ENCOUNTER → 2022-11-14 10:38 | Outpatient (BNVA) | payer MEDICARE, OTHER, SELFPAY | PROVIDERS: PCP Clinical Nurse Specialist Adult Health; Visit Provider Clinical Nurse Specialist Adult Health | DX: D64.9 Anemia, unspecified (principal); I50.9 Heart failure, unspecified | CPT/HCPCS: 82668; 82728; 83550 ==

== ENCOUNTER → 2023-01-02 10:56 | Outpatient (BNVA) | payer MEDICARE, OTHER, SELFPAY | PROVIDERS: PCP Clinical Nurse Specialist Adult Health; Referring Provider Clinical Nurse Specialist Adult Health; Visit Provider Dermatology | DX: L23.9 Allergic contact dermatitis, unspecified cause (principal); L30.9 Dermatitis, unspecified; L81.4 Other melanin hyperpigmentation; L82.1 Other seborrheic keratosis; L85.3 Xerosis cutis; L57.8 Other skin changes due to chronic exposure to nonionizing radiation; L30.8 Other specified dermatitis | CPT/HCPCS: 11102; 99203 ==

== ENCOUNTER → 2023-01-30 13:26 | Outpatient (BNVA) | payer MEDICARE, OTHER, SELFPAY | PROVIDERS: PCP Clinical Nurse Specialist Adult Health; Visit Provider Clinical Nurse Specialist Adult Health | DX: R53.83 Other fatigue (principal) | CPT/HCPCS: 81000 ==

== ENCOUNTER 2023-02-04 16:53 | Emergency (ER) | payer MEDICARE, OTHER, SELFPAY ==
[2023-02-04 17:14] VITALS: BP 151/63; PULSE 101; RESP 18; TEMP 36.6; O2SAT 92
--- NOTE | 2023-02-04 17:31 | W.ED.GENADLT ---
HPI - General Adult General: Chief complaint: General Medical Stated complaint: low INR results Time Seen by Provider: 02/04/23 17:30 History of Present Illness: 87-year-old male patient comes in today for concerns of bleeding from the fistula site. Patient had dialysis today and had some persistent bleeding afterwards. Patient does take warfarin daily. Spouse reports that the INR levels have been elevated lately with the last one that she has been able to record was 4 and that was on Friday. Today when it was checked it read high. Patient was referred to the ER for concerns of elevated INR and possible need for a dose of vitamin K. Patient appears nontoxic. Review of labs from dialysis noted a hemoglobin of 10.6. Site at this time has a pressure dressing on it that is not saturated but has oozing blood from it. Associated symptoms: Deny chest pain, dyspnea, headache(s), nausea, rash or vomiting Review of Systems General: Reports: 10 or more systems reviewed and unremarkable except in HPI and below Const: Denies: fever(s) Card: Denies: chest pain Resp: Denies: dyspnea GI: Denies: nausea or vomiting : Denies: difficulty urinating Musc: Denies: neck pain Skin/Breast: Denies: rash Neuro: Denies: headache(s) Chucky/Lymph: Reports: easy bleeding PFSH ED PFSH: Medical History Adult onset hypothyroidism Benign hypertension CHF (congestive heart failure) COPD (chronic obstructive pulmonary disease) with emphysema Dialysis patient 2016 Fungal dermatitis Hyperkalemia Hypothyroidism Presence of arteriovenous fistula for hemodialysis Surgical History History of cataract surgery 2013 History of colonoscopy 2016 History of heart valve replacement Aortic in [place] 10/19/19 History of hernia repair History of right knee surgery 2010 Hx of left knee surgery 2010 Status post double vessel coronary artery bypass 2017 Family History Father Heart attack Mother Respiratory failure Social History Smoking and tobacco status: never smoked Second hand smoke exposure: No Smoking risk assessment/counseling performed?: No Alcohol intake: current Alcohol intake frequency: holidays/special occasions only Alcohol type: wine Desire information about alcohol rehabilitation?: No Counseling given: No Substance/Drug Use: never Desire information about substance/drug rehabilitation?: No Counseling given: No Caregiver/support person: No Lives independently: Yes Household members: spouse Housing: House Marital status: Number of children: 2 service: No Current occupational status: retired Do you think of yourself as: Straight/Heterosexual Current gender identity: Male Physical Exam Const: COMMON NORMALS: alert HENMT: COMMON NORMALS: normocephalic HEAD & SCALP: normocephalic Neck/C-Spine: COMMON NORMALS: full ROM Resp: COMMON NORMALS: normal respiratory effort and clear to auscultation bilaterally AUSCULTATION: clear to auscultation bilaterally Cardio: COMMON NORMALS: regular rate and regular rhythm RATE: regular rate RHYTHM: regular rhythm GI: COMMON NORMALS: Soft to palpation and non-tender PALPATION: Yes Soft to palpation Extremity: COMMON NORMALS: no pedal edema LEFT UPPER EXTREMITY: Yes upper arm (Oozing fistula access site) Neuro: SENSORIUM/ORIENTATION: Yes alert Skin: COMMON NORMALS: turgor normal GENERAL SKIN EXAM: turgor normal Course Vital Signs: Vital signs: Vital Signs Temperature 97.9 F 02/04/23 17:14 Pulse Rate 80 02/04/23 18:25 Respiratory Rate 16 02/04/23 18:25 Blood Pressure 149/71 02/04/23 18:25 Pulse Oximetry 99 02/04/23 18:25 Oxygen Delivery Me thod Room Air 02/04/23 18:25 MDM - General Adult Medical Decision Making 87-year-old male patient comes in today for complaints of oozing bleeding from the left upper arm fistula site. Concern is about patient's INR being elevated. Patient appears nontoxic. Patient appears in no pain. Distal pulses are intact. Site has some oozing blood but is controlled with pressure. Differential diagnosis includes but not limited to adverse drug effect, anticoagulated, elevated INR. Hemoglobin was 10.7, INR was 6.39. Patient was given 5 mg of vitamin K. Reviewed with patient's family recommendations for treatment with warfarin. Patient is able to recheck INR at home. Recommend holding warfarin until INR comes down to 2-3 and following up with managing provider. Spouse reported understanding and agreed to plan. Bleeding was controlled to the site of fistula with pressure. Lab Data 02/04/23 18:34 Laboratory Results WBC 14.0 10^3/uL (4.0-10.0) H 02/04/23 18:34 RBC 3.77 10^6/uL (4.1-5.3) L 02/04/23 18:34 Hgb 10.7 g/dL (11.7-16.6) L 02/04/23 18: Hct 33.5 % (42.0-52.0) L 02/04/23 18: MCV 88.9 fl (80-94) 02/04/23 18: MCH 28.4 pg (28.0-34.0) 02/04/23 18: MCHC 31.9 g/dL (30.0-36.0) 02/04/23 18: RDW 17.4 % (12.1-15.1) H 02/04/23 18: Plt Count 383 10^3/cmm (130-400) 02/04/23 18: MPV 9.3 fL (7.4-10.4) 02/04/23 18: Neut % (Auto) 83.7 % 02/04/23 18:34 Lymph % (Auto) 4.9 % 02/04/23 18:34 [place] % (Auto) 10.2 % 02/04/23 18:34 Eos % (Auto) 0.1 % 02/04/23 18:34 Baso % (Auto) 0.2 % 02/04/23 18:34 Neut # (Auto) 11.70 10^3/uL (1.8-7.7) H 02/04/23 18:34 Lymph # (Auto) 0.7 10^3/uL (0.8-4.8) L 02/04/23 18:34 [place] # (Auto) 1.4 10^3/uL (0.2-0.9) H 02/04/23 18:34 Eos # (Auto) 0.0 10^3/uL (0.0-0.8) 02/04/23 18:34 Baso # (Auto) 0.0 10^3/uL (0.0-0.1) 02/04/23 18:34 Nucleated RBC % (auto) 0 % 02/04/23 18:34 Nucleated RBCs # 0.0 /100WBC 02/04/23 18:34 PT 58.80 SECONDS (12.1-14.9) H 02/04/23 18:34 INR 6.39 (0.8-1.2) H* 02/04/23 18:34 Discharge Plan Discharge Patient Disposition: Home Clinical Impression: Anticoagulant adverse reaction Qualifiers: Encounter type: initial encounter Qualified Code(s): T45.515A - Adverse effect of anticoagulants, initial encounter Condition: Stable Prescriptions: No Action Auryxia 210 mg iron tablet 210 mg PO TID triamcinolone acetonide 0.1 % cream 1 applic TOPICAL BID omega-3 fatty acids 1,000 mg capsule 1,000 mg PO DAILY ondansetron HCl 4 mg tablet 4 mg PO Q4H Adult 50 Plus Probiotic 4 billion cell capsule 4,000 mmu cells PO DAILY Rx Instructions: administer with a meal warfarin 3 mg tablet 9 mg PO DAILY Rx Instructions: 6 mg t,th 9 mg S,M,W,F,S Mircera 30 mcg/0.3 mL syringe 30 mcg IV .Q4W acetaminophen 500 mg tablet 1,000 mg PO Q6H PRN albuterol sulfate 90 mcg/actuation HFA aerosol inhaler 2 inh inhalation QID PRN (Reason: shortness of breath or wheezing) Qty: 8.5 2RF benzonatate 100 mg capsule 100 mg PO TID PRN (Reason: cough) Qty: 45 0RF clonidine HCl 0.1 mg tablet 0.05 mg PO .prn Qty: 30 0RF Alphagan P 0.1 % drops 1 drp ophthalmic (eye) Q8H Qty: 5 0RF ketoconazole 2 % cream 1 applic TOPICAL BID Qty: 60 1RF Rx Instructions: Apply twice daily to hands mupirocin 2 % ointment 1 applic topical BID Qty: 22 1RF metoprolol succinate 25 mg tablet extended release 24 hr 25 mg PO DAILY Hold Instructions: Doctor's Order hydralazine 50 mg tablet 100 mg PO BID irbesartan 150 mg tablet 150 mg PO .qhs RenaPlex 800 mcg- 12.5 mg tablet 1 tab PO DAILY torsemide 20 mg tablet 40 mg PO DAILY Rx Instructions: 2 tabs on non-dialysis days isosorbide mononitrate 30 mg tablet extended release 24 hr 60 mg PO DAILY promethazine-DM 6.25-15 mg/5 mL syrup 5 ml PO Q6H PRN (Reason: cough) Qty: 200 1RF Rx Instructions: for severe cough amlodipine 10 mg tablet 10 mg PO DAILY Qty: 90 3RF pantoprazole 40 mg tablet,delayed release (DR/EC) 40 mg PO DAILY Qty: 90 3RF levothyroxine 25 mcg tablet 25 mcg PO DAILY 90 Days Qty: 90 3RF doxycycline hyclate 100 mg tablet 100 mg PO BID Qty: 28 0RF Discharge Orders: Discharge ED (Routine); Ordered 02/04/23 Ordered By: Abilio Tan Referrals: Navid Garrett TOWEL ROLLING MACHINE OPERATOR [Primary Care Provider] - Discharge Diet: Usual diet Discharge Activity: Increase activity as tolerated Patient Instructions: Hypercoagulation (ED) Activity Restrictions/Additional Instructions: Hold warfarin until you follow-up with managing provider and improvement in INR. Return to ER for fall or injury or new concerns. Coding Level of Care Code ED Amortization Schedule Clerk for Stacey Wang
[2023-02-04 18:25] VITALS: BP 149/71; PULSE 80; RESP 16; O2SAT 99
[2023-02-04 18:46] LABS: Basophils % 0.2 %; Eosinophils % 0.1 %; Hematocrit 33.5 % (42.0-52.0); Hemoglobin 10.7 g/dL (11.7-16.6); Lymphocytes # 0.7 10^3/uL (0.8-4.8); Lymphocytes % 4.9 %; Mean Corpuscular HGB Conc 31.9 g/dL (30.0-36.0); Mean Corpuscular Hemoglobin 28.4 pg (28.0-34.0); Mean Corpuscular Volume 88.9 fl (80-94); Mean Platelet Volume 9.3 fL (7.4-10.4); Monocytes # 1.4 10^3/uL (0.2-0.9); Monocytes % 10.2 %; Neutrophils % 83.7 %; Nucleated Red Blood Cells % 0 %; Platelet Count 383 10^3/cmm (130-400); Red Blood Count 3.77 10^6/uL (4.1-5.3); Red Cell Distribution Width 17.4 % (12.1-15.1)
[2023-02-04 19:19] LABS: INR 6.39 (0.8-1.2)
[2023-02-04] MEDS: phytonadione (ADULT) 10 mg/mL Ampule 1 mL 5 MG PO (19:35)
== END 2023-02-04 19:47 | disposition home or self-care (01) ==
PROVIDERS: Emergency Provider Nurse Practitioner Family; PCP Clinical Nurse Specialist Adult Health
DX: T88.7XXA Unspecified adverse effect of drug or medicament, initial encounter (principal); T45.515A Adverse effect of anticoagulants, initial encounter; Z79.01 Long term (current) use of anticoagulants; I11.0 Hypertensive heart disease with heart failure; I50.9 Heart failure, unspecified; J44.9 Chronic obstructive pulmonary disease, unspecified; Z99.2 Dependence on renal dialysis
CPT/HCPCS: 36415; 85025; 85610; 99283; J3430